=== PATIENT | female | born 1985 ===

== ENCOUNTER 2024-09-21 09:00 | Outpatient (OUT) | payer OTHER, SELFPAY ==
--- NOTE | 2024-09-21 | XR_ITS ---
The [address] [address] Patient Name: RENA WARREN MRN: [id number] date: 1985 Sex: F Assigned Patient Location: Current Patient Location: Accession/Order Number: [id number] Exam Date: 09/21/2024 10:21 Report Date: 09/21/2024 10:23 At the request of: ANSLEY VARGAS MD Procedure: XR hip RT 2V w/ pelvis RIGHT HIP WITH AP PELVIS - 3 views COMPARISON: None available CLINICAL DATA: Acute right hip pain for the past 5 weeks. Patient was a runner. No specific injury. Weightbearing AP view of the pelvis as well as AP and frog-lateral views of the right hip were obtained. No fracture or dislocation is identified. The hip joint spaces are maintained. There is no significant hypertrophy. There is minor sclerosis at the SI joints. No soft tissue abnormalities are present. XR/XR hip RT 2V w/ pelvis IMPRESSION: NO ACUTE BONY FINDINGS. Impression dictated by: Tess Gan M.D.09/21/2024 10:23 AM Dictation Location: [place] [address] Electronically authenticated by: [id number] Date: 09/21/2024 10:23
== END 2024-09-21 09:01 | disposition home or self-care (01) ==
LOC: EC 09:00
PROVIDERS: Visit Provider Orthopaedic Surgery
DX: M25.551 Pain in right hip (principal)
CPT/HCPCS: 73502